=== PATIENT | female | born 1985 | race Two or more races ===

== ENCOUNTER 2024-02-06 11:04 | Emergency (ER) | payer OTHER ==
[~2024-02-06] VITALS: Ht 160 cm; Wt 106.6 kg
[2024-02-06 11:39] VITALS: BP 143/68; RESP 20; O2SAT 96
[2024-02-06 12:04] LABS: Urine Bacteria NONE SEEN /hpf (None Seen); Urine Blood Negative /uL (Negative); Urine Clarity Clear (Clear); Urine Mucus FEW (None Seen); Urine Protein, UAD Negative (Negative); Urine Specific Gravity 1.024 (1.001-1.035); Urine Urobilinogen Normal (Negative); Urine WBC 3 /hpf (0 - 5); Urine pH 5.5 (5.0-8.0)
[2024-02-06 12:08] LABS: Urine Color STRAW (Yellow)
[2024-02-06 13:21] LABS: Mean Corpuscular Hemoglobin 29.5 pg (28.0-32.0); Monocytes # (auto) 0.5 10 ^3/uL (0-1.3); White Blood Cell 8.1 10^3/uL (4.4-10.8)
[2024-02-06 13:22] LABS: Basophils # (auto) 0.1 10 ^3/uL (0-0.2); Basophils % (auto) 0.9 % (0.0-2.0); Eosinophils # (auto) 0.2 10 ^3/uL (0-0.8); Eosinophils % (auto) 2.7 % (0.0-7.0); Hematocrit 38.8 % (36.0-46.0); Hemoglobin 12.6 g/dL (12.2-16.2); Lymphocytes # (auto) 1.9 10 ^3/uL (0.4-5.4); Lymphocytes % (auto) 23.9 % (10.0-50.0); Mean Corpuscular Hgb Conc. 32.4 g/dL (32.0-36.0); Mean Corpuscular Volume 91.1 fL (80.0-100.0); Neutrophils # (auto) 5.4 10 ^3/uL (1.6-8.6); Neutrophils % (auto) 66.5 % (37.0-80.0); Red Blood Cells 4.26 10^6/uL (4.0-5.20); Red Cell Distribution Width 14.8 % (11.8-14.3)
[2024-02-06 13:31] VITALS: PULSE 68
[2024-02-06 13:34] LABS: INR 0.97 (0.9-1.15); Prothrombin Time 10.2 sec (9.3-11.8)
[2024-02-06 13:39] LABS: Albumin 4.4 g/dL (3.2-4.8); Alkaline Phosphatase 52 U/L (46-116); Anion Gap 7 (5-15); Aspartate Aminotransferase 54 U/L (13-40); Bilirubin, Total 0.4 mg/dL (0.2-1.0); Calcium 9.5 mg/dL (8.7-10.4); Carbon Dioxide 23 mmol/L (20-30); Chloride 105 mmol/L (98-107); Glucose 88 mg/dL (74-106); Sodium 135 mmol/L (136-145)
[2024-02-06 13:40] LABS: Total Protein 7.7 g/dL (5.7-8.2)
[2024-02-06 13:41] LABS: Alanine Aminotransferase 42 U/L (7-40); BUN/Creatinine Ratio 10.4 (10.0-20.0); Blood Urea Nitrogen 8 mg/dL (9-23); Lipase 29 U/L (12-53)
[2024-02-06] MEDS: IOHEXOL 350 MG/ML 100ML IJ ONE (13:58)
[2024-02-06] MEDS ORDERED: NAPR-591 PO (15:41)
== END 2024-02-06 16:49 | disposition left against medical advice (07) ==
LOC: ER 11:04
DX: R19.09 Other intra-abdominal and pelvic swelling, mass and lump (principal); R10.2 Pelvic and perineal pain; R10.10 Upper abdominal pain, unspecified; M25.561 Pain in right knee; Z98.890 Other specified postprocedural states; Z79.899 Other long term (current) drug therapy; V89.2XXA Person injured in unspecified motor-vehicle accident, traffic, initial encounter; Y93.I9 Activity, other involving external motion; Y92.89 Other specified places as the place of occurrence of the external cause; Y99.8 Other external cause status
CPT/HCPCS: 36415; 71260; 74177; 80053; 81001; 83690; 84484; 84702; 85025; 85610; 93005; 99285; Q9967

== ENCOUNTER 2025-03-17 04:14 | Emergency (ER) | payer OTHER ==
[~2025-03-17] VITALS: Ht 160 cm; Wt 106.3 kg
[~2025-03-17 04:14] MED LIST: NAPR-591 PO
--- NOTE | 2025-03-17 04:26 | ED.PDOC ---
Eye-HPI HPI Comments C/C of left ear pain. Pt states hearing has decreased without any cause. VSS. NKDA. Patient also complaining of diffuse rash across torso she states did a tele doc appointment however was not prescribed anything. She states it is fungal had in the past and used the cream which helped. Denies fever, chills, nausea, vomiting, diarrhea, chest pain, difficulty breathing, or shortness of breath. Time Seen by MD: 04:18 Primary Care Provider: Juan Reviewed Notes: Nurses Notes, Medications, Allergies Allergies: Coded Allergies: NO KNOWN ALLERGIES (Unverified , 02/06/24) Home Meds Active Scripts Clotrimazole W/ Betamethasone (Clotrimazole/Betamethason 1-0.05 %) 1 Cre Cre, 1 CRE EX BID for 7 Days, #15 GRAMS APPLY THIN LAYER TWICE DAILY TO AFFECTED AREA X7 DAYS Prov:RODY DONOVAN 03/17/25 Pqieramo-Rnazvetkc-Mb (Otic) (Cortisporin Otic Susp) [address], 4 DROP LEFT EAR TID for 7 Days, #3 ML Prov:RODY DONOVANP 03/17/25 Naproxen (Naproxen) 250 Mg Tab, 250 MG PO BID for 7 Days, #14 TAB Prov:ANNA GUTIERREZ MD 02/06/24 Information Source: Patient Past Medical History PAST MEDICAL HISTORY: Denies 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 Family History Family History: Family hx of DM, Family hx of Cancer Social History Smoker: Non-Smoker Alcohol: Denies ETOH Use Drugs: Denies Drug Use Lives In: Home Constitutional: denies: chills, diaphoresis, fatigue, fever, malaise, sweats, weakness, others EENTM: reports: ear pain; denies: blurred vision, double vision, ear bleeding, ear discharge, ear drainage, ear ringing, eye pain, eye redness, hearing loss, mouth pain, mouth swelling, nasal discharge, nose bleeding, nose congestion, nose pain, photophobia, tearing, throat pain, throat swelling, voice changes, others Respiratory: denies: cough, hemoptysis, orthopnea, SOB at rest, shortness of breath, SOB with excertion, stridor, wheezing, others Cardiovascular: denies: chest pain, dizzy spells, diaphoresis, Dyspnea on exertion, edema, irregular heart beat, left arm pain, lightheadedness, palpitations, PND, syncope, others Gastrointestinal: denies: abdomen distended, abdominal pain, blood streaked bowels, constipated, diarrhea, dysphagia, difficulty swallowing, hematemesis, melena, nausea, poor appetite, poor fluid intake, rectal bleeding, rectal pain, vomiting, others Genitourinary: denies: abnormal vagina bleeding, burning, dyspareunia, dysuria, flank pain, frequency, hematuria, incontinence, pain, , vagina discharge, urgency, others Neurological: denies: dizziness, fainting, headache, left sided numbness, left sided weakness, numbness, paresthesia, pre-existing deficit, right sided numbness, right sided weakness, seizure, speech problems, tingling, tremors, weakness, others Musculoskeletal: denies: back pain, gout, joint pain, joint swelling, muscle pain, muscle stiffness, neck pain, others Integumetry: denies: bruises, change in color, change in hair/nails, dryness, laceration, lesions, lumps, rash, wounds, others Allergic/Immunocompromised: denies: Difficulty Healing, Frequent Infections, Hives, Itching, others Hematologic/Lymphatic: denies: anemia, blood clots, easy bleeding, easy bruising, swollen glands, others Endocrine: denies: excessive hunger, excessive sweating, excessive thirst, excessive urination, flushing, intolerance to cold, intolerance to heat, unexplained weight gain, unexplained weight loss, others Psychiatric: denies: anxiety, bipolar disorder, depression, hopeless, panic disorder, schizophrenia, sleepless, suicidal, others Physical Exam General Appearance: No Apparent Distress, Normal HEENT: Pharynx Normal, TMs Normal, Other (LEFT EAR CANAL EDEMATOUS AND SOPHIA THEMIC WITHOUT DRAINAGE TYMPANIC MEMBRANE UNVISUALIZED) Neck: Full Range of Motion, Non-Tender, Normal, Normal Inspection Respiratory: Chest Non-Tender, Lungs Clear, No Accessory Muscle Use, No Respiratory Distress, Normal Breath Sounds Cardiovascular: No Edema, No JVD, No Murmur, No Gallop, Normal Peripheral Pulses, Regular Rate/Rhythm Breast Exam: Deferred Gastrointestinal: No Organomegaly, Non Tender, No Pulsatile Mass, Normal Bowel Sounds, Soft Genitalia: Deferred Pelvic: Deferred Rectal: Deferred Extremities: No calf tenderness, Normal capillary refill, Normal inspection, Normal range of motion, Non-tender, No pedal edema Musculoskeletal : Apperance: Normal Neurologic: Alert, senior storage engineer II-XII nml as Tested, No Motor Deficits, Normal Affect, Normal Mood, No Sensory Deficits Cerebellar Function: Normal Reflexes: Normal Skin: Dry, Normal Color, Rash (Dry erythemic scaly rash cross abdomen no noted excoriations lesions or openings no noted drainage. Blanchable), Warm Lymphatic: No Adenopathy Was a procedure done? Was a procedure done?: No EENT DIFF Eye: N/A Ear: Cerumen Impaction, Foreign Body, Barotrauma, Otitis Media, Perforation, Dental, Pharyngitis X-Ray, Labs, Meds, VS Vital Signs Date Time Temp Pulse Resp B/P (MAP) Pulse Ox O2 Delivery O2 Flow Rate FiO2 03/17/25 04:45 98.6 88 16 135/89 (104) 94 98.6 Current Medications Medications (Trade) Dose Ordered Sig/Belén Route Start Time Stop Time Status Last Admin Dexamethasone Sodium Phosphate (Decadron Injection) 10 mg ONCE ONCE IM 03/17/25 04:45 03/17/25 04:46 DC 03/17/25 04:59 Fluconazole (Diflucan Tablet) 200 mg ONCE ONCE PO 03/17/25 04:45 03/17/25 04:46 DC 03/17/25 04:59 X-Ray, Labs, Meds, VS Comment Patient Decadron 10 mg IM for the edema in on a for ear drops a penetrate in 1 dose of fluconazole for yeast infection. Patient states she is feeling better requesting discharge at this time script ear drops and antifungal cream patient's pharmacy on file. Advised to take medications as prescribed side effects discussed. Advised no water activities while with infection. Advised to follow up with her PCP in 1-2 days, ER return precautions given patient indicates understanding and agrees with discharge plan of care. Time of 1ST Reevaluation: 04:44 Reevaluation 1ST: Unchanged Time of 2ND Reevaluation: 05:08 Reevaluation 2ND: Improved Patient Education/Counseling: Diagnosis, Treatment, Prognosis, Need For Follow Up Family Education/Counseling: No Family Present Departure 1 Departure Time of Disposition: 05:08 Impression: Primary Impression: Otitis externa Qualified Codes: H60.312 - Diffuse otitis externa, left ear Additional Impression: Tinea corporis Disposition: HOME / SELF CARE / HOMELESS Condition: Stable e-Prescriptions Clotrimazole W/ Betamethasone (Clotrimazole/Betamethason 1-0.05 %) 1 Cre Cre 1 CRE EX BID for 7 Days, #15 GRAMS APPLY THIN LAYER TWICE DAILY TO AFFECTED AREA X7 DAYS Prov: RODY DONOVAN 03/17/25 Dfdmvrsv-Trosqajkl-Qi (Otic) (Cortisporin Otic Susp) [address] 4 DROP LEFT EAR TID for 7 Days, #3 ML Prov: RODY DONOVAN 03/17/25 Discharged With: Self Critical Care Note Critical Care Time?: No Stability Stability form required: RODY Menjivar Mar 17, 2025 04:26
[2025-03-17] MEDS ORDERED: CLOTCRE3 EX (04:46)
[2025-03-17] MEDS ORDERED: COROSUS LEFT EAR (04:46)
[2025-03-17] MEDS: FLUCONAZOLE 100 MG TAB PO ONE (04:59)
[2025-03-17] MEDS: DexAMETHasone SOD PHOS 10MG/1ML VIAL INJ IM ONE (04:59)
[2025-03-17 05:08] VITALS: BP 135/89; PULSE 88; RESP 16; TEMP 98.6; O2SAT 94
== END 2025-03-17 05:10 | disposition home or self-care (01) ==
LOC: ER 04:14
DX: H60.8X2 Other otitis externa, left ear (principal); B35.4 Tinea corporis; Z98.890 Other specified postprocedural states
CPT/HCPCS: 96372; 99283; J1100

== ENCOUNTER 2025-03-24 18:03 | Emergency (ER) | payer OTHER ==
[~2025-03-24] VITALS: Ht 160 cm; Wt 103.8 kg
[~2025-03-24 18:03] MED LIST changes: +CLOTCRE3 EX; +COROSUS LEFT EAR
[2025-03-24 18:44] LABS: Urine Bacteria None Seen /hpf (None Seen)
--- NOTE | 2025-03-24 18:51 | ED.PDOC ---
GI ASSESSMENT HPI Comments 40-year-old female who came to ER for abdominal pain. Patient has history of gallstones, intermittent episodes of aching, sharp, right upper quadrant abdominal pain, nonradiating, associated bouts of nausea and vomiting. Patient states she feels like her gallstones are flaring up again. Patient also complaining of hearing loss of the left ear. Chief Complaint: Abdominal Pain Time Seen by MD: 18:51 Primary Care Provider: DEVANTE Reviewed Notes: Nurses Notes Allergies: Coded Allergies: NO KNOWN ALLERGIES (Unverified , 02/06/24) Home Meds Active Scripts Clotrimazole W/ Betamethasone (Clotrimazole/Betamethason 1-0.05 %) 1 Cre Cre, 1 CRE EX BID for 7 Days, #15 GRAMS APPLY THIN LAYER TWICE DAILY TO AFFECTED AREA X7 DAYS Prov:RODY DONOVAN 03/17/25 Cemlltye-Ymbuogacn-Tl (Otic) (Cortisporin Otic Susp) [address], 4 DROP LEFT EAR TID for 7 Days, #3 ML Prov:RODY DONOVAN 03/17/25 Naproxen (Naproxen) 250 Mg Tab, 250 MG PO BID for 7 Days, #14 TAB Prov:ANNA GUTIERREZ MD 02/06/24 Information Source: Patient Mode of Arrival: Ambulatory Timing: Days Duration: Intermittent Prehospital treatment: None Quality: Aching, Sharp Vomitus: Watery Stool: Normal Severity: Moderate Recent: None Recent Hx of: Abdominal Surgery Pain Location: RUQ Modifying Factors: Nothing Associated sign and symptoms: Nausea, Vomiting, Abdominal Pain Past Medical History PAST MEDICAL HISTORY: Gallstones 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 Family History Family History: Family hx of DM, Family hx of Cancer Social History Smoker: Non-Smoker Alcohol: Denies ETOH Use Drugs: Denies Drug Use Lives In: Home Constitutional: denies: chills, diaphoresis, fatigue, fever, malaise, sweats, weakness, others EENTM: reports: hearing loss (Left ear); denies: blurred vision, double vision, ear bleeding, ear discharge, ear drainage, ear pain, ear ringing, eye pain, eye redness, mouth pain, mouth swelling, nasal discharge, nose bleeding, nose congestion, nose pain, photophobia, tearing, throat pain, throat swelling, voice changes, others Respiratory: denies: cough, hemoptysis, orthopnea, SOB at rest, shortness of breath, SOB with excertion, stridor, wheezing, others Cardiovascular: denies: chest pain, dizzy spells, diaphoresis, Dyspnea on exertion, edema, irregular heart beat, left arm pain, lightheadedness, palpitations, PND, syncope, others Gastrointestinal: reports: abdominal pain, nausea, vomiting; denies: abdomen distended, blood streaked bowels, constipated, diarrhea, dysphagia, difficulty swallowing, hematemesis, melena, poor appetite, poor fluid intake, rectal bleeding, rectal pain, others Genitourinary: denies: abnormal vagina bleeding, burning, dyspareunia, dysuria, flank pain, frequency, hematuria, incontinence, pain, , vagina discharge, urgency, others Neurological: denies: dizziness, fainting, headache, left sided numbness, left sided weakness, numbness, paresthesia, pre-existing deficit, right sided numbness, right sided weakness, seizure, speech problems, tingling, tremors, weakness, others Musculoskeletal: denies: back pain, gout, joint pain, joint swelling, muscle pain, muscle stiffness, neck pain, others Integumetry: denies: bruises, change in color, change in hair/nails, dryness, laceration, lesions, lumps, rash, wounds, others Allergic/Immunocompromised: denies: Difficulty Healing, Frequent Infections, Hives, Itching, others Hematologic/Lymphatic: denies: anemia, blood clots, easy bleeding, easy bruising, swollen glands, others Endocrine: denies: excessive hunger, excessive sweating, excessive thirst, excessive urination, flushing, intolerance to cold, intolerance to heat, unexplained weight gain, unexplained weight loss, others Psychiatric: denies: anxiety, bipolar disorder, depression, hopeless, panic disorder, schizophrenia, sleepless, suicidal, others Physical Exam General Appearance: No Apparent Distress, Normal HEENT: Normal ENT Inspection, Pharynx Normal, TMs Normal Neck: Full Range of Motion, Non-Tender, Normal, Normal Inspection Respiratory: Chest Non-Tender, Lungs Clear, No Accessory Muscle Use, No Respiratory Distress, Normal Breath Sounds Cardiovascular: No Edema, No JVD, No Murmur, No Gallop, Normal Peripheral Pulses, Regular Rate/Rhythm Breast Exam: Deferred Gastrointestinal: No Organomegaly, No Pulsatile Mass, Normal Bowel Sounds, RUQ, Soft, Tenderness Genitalia: Deferred Pelvic: Deferred Rectal: Deferred Extremities: No calf tenderness, Normal capillary refill, Normal inspection, Normal range of motion, Non-tender, No pedal edema Musculoskeletal : Apperance: Normal Neurologic: Alert, motor bike mechanic II-XII nml as Tested, No Motor Deficits, Normal Affect, Normal Mood, No Sensory Deficits Cerebellar Function: Normal Reflexes: Normal Skin: Dry, Normal Color, Warm Lymphatic: No Adenopathy Was a procedure done? Was a procedure done?: No GI differential Dx Differential Diagnosis: Cholecystitis, Diverticular disease, Gastritis/PUD, Gastroenteritis, Hernia, Hepatitis, Pancreatitis, UTI, Urolithiasis X-Ray, Labs, Meds, VS Vital Signs Date Time Temp Pulse Resp B/P (MAP) Pulse Ox O2 Delivery O2 Flow Rate FiO2 03/24/25 18:38 99.2 82 16 141/75 (97) 97 99.2 Lab Test 03/24/25 18:53 03/24/25 18:32 Range/Units White Blood Count 11.2 H 4.4-10.8 10^3/uL Red Blood Count 4.60 4.0-5.20 10^6/uL Hemoglobin 13.3 12.2-16.2 g/dL Hematocrit 41.2 36.0-46.0 % Mean Corpuscular Volume 89.6 80.0-100.0 fL Mean Corpuscular Hemoglobin 28.9 28.0-32.0 pg Mean Corpuscular Hemoglobin Concent 32.2 32.0-36.0 g/dL Red Cell Distribution Width 14.2 11.8-14.3 % Platelet Count 416 140-450 10^3/uL Mean Platelet Volume 7.6 6.9-10.8 fL Neutrophils (%) (Auto) 69.0 37.0-80.0 % Lymphocytes (%) (Auto) 22.5 10.0-50.0 % Monocytes (%) (Auto) 5.8 0.0-12.0 % Eosinophils (%) (Auto) 1.7 0.0-7.0 % Basophils (%) (Auto) 1.0 0.0-2.0 % Neutrophils # (Auto) 7.7 1.6-8.6 10 ^3/uL Lymphocytes # (Auto) 2.5 0.4-5.4 10 ^3/uL Monocytes # (Auto) 0.7 0-1.3 10 ^3/uL Eosinophils # (Auto) 0.2 0-0.8 10 ^3/uL Basophils # (Auto) 0.1 0-0.2 10 ^3/uL Nucleated Red Blood Cells 0.0 % Sodium Level 138 136-145 mmol/L Potassium Level 4.4 3.5-5.1 mmol/L Chloride Level 107 98-107 mmol/L Carbon Dioxide Level 23 20-31 mmol/L Anion Gap 8 5-15 Blood Urea Nitrogen 11 9-23 mg/dL Creatinine 0.84 0.550-1.02 mg/dL Glomerular Filtration Rate Calc 89 >90 mL/min BUN/Creatinine Ratio 13.1 10.0-20.0 Serum Glucose 113 H 74-106 mg/dL Calcium Level 9.9 8.7-10.4 mg/dL Total Bilirubin 0.2 0.2-1.0 mg/dL Aspartate Amino Transferase (AST) 20 13-40 U/L Alanine Aminotransferase (ALT) 33 7-40 U/L Alkaline Phosphatase 63 46-116 U/L Total Protein 7.4 5.7-8.2 g/dL Albumin 4.6 3.2-4.8 g/dL Lipase 44 12-53 U/L Urine Color Light-yellow Yellow Urine Clarity Clear Clear Urine pH 5.0 5.0-9.0 Urine Specific [place] 1.023 1.001-1.035 Urine Protein Negative Negative Urine Ketones Negative Negative Urine Blood Negative Negative /uL Urine Nitrite Negative Negative Urine Bilirubin Negative Negative Urine Urobilinogen Normal Negative mg/dL Urine Leukocyte Esterase Negative Negative /uL Urine RBC <1 0 - 4 /hpf Urine Microscopic WBC 1 0-5 /HPF Urine Squamous Epithelial Cells Few <5 /hpf Urine Bacteria None seen None Seen /hpf Urine Hyaline Casts Few 0 - 2 /lpf Urine Mucus Few None Seen Urine Glucose Normal Normal mg/dL PROCEDURE(s): GBUS - GALLBLADDER REASON: RUQ pain ORDER NUMBER(s): [id number], ACCESSION NUMBER(s): [id number] INDICATION: RUQ pain TECHNIQUE: Multiple real-time sonographic images of the abdomen were obtained. COMPARISON: None FINDINGS: Echogenic hepatic parenchyma suggesting steatosis The liver measures 16.97 cm. No intrahepatic biliary ductal dilatation is noted. The gallbladder wall measures 0.52 cm and is u thickened. Multiple gallstones. The common duct measures 0.33 cm and is unremarkable. No pericholecystic fluid is noted. Negative sonographic groves's sign The right kidney measures 10.3 cm. No hydronephrosis. The pancreas head appears normal tail is obscured by bowel gas The visualized portions of the IVC and aorta are grossly unremarkable. IMPRESSION: 1. Liver is 16.97 cm in length with steatosis of the hepatic parenchyma. 2. Cholelithiasis with thickened gallbladder wall. Sonographic groves's sign is negative. There is pericholecystic fluid 3. Right kidney measures 10.93 cm. Time of 1ST Reevaluation: 18:48 Reevaluation 1ST: Unchanged Patient Education/Counseling: Diagnosis, Treatment Family Education/Counseling: No Family Present Departure 1 Departure Time of Disposition: 20:08 Impression: Primary Impression: Acute abdominal pain Additional Impression: Cholecystitis Disposition: 09 ADMITTED INPATIENT Condition: Guarded Discharged With: Self Comments Acute Cholecystitis Chief Complaint: Abdominal pain with nausea and vomiting History of Present Illness: 40-year-old female with known history of gallstones presents with abdominal pain, nausea, and vomiting for the past two days. Patient reports associated symptoms including nausea with episodes of vomiting. She has a documented hi story of gallstones. Review of Systems: Constitutional: Positive for nausea and vomiting Gastrointestinal: Positive for abdominal pain All other systems reviewed and negative Past Medical History: Cholelithiasis Fatty liver disease Lab Results: WBC: 11.2 (Elevated) Liver function tests: Within normal limits Imaging and Other Relevant Results: Ultrasound findings: - Gallstones present - Thickened gallbladder wall - Pericholecystic fluid - Fatty liver changes - Negative Groves's sign Medical Decision Making: Summary Statement: 40-year-old female with known gallstones presenting with acute onset of abdominal pain, nausea, and vomiting, found to have ultrasound findings consistent with acute cholecystitis and elevated WBC. Problem List: 1. Acute cholecystitis 2. Cholelithiasis 3. Fatty liver disease Differential Diagnosis: 1. Acute cholecystitis 2. Biliary colic 3. Choledocholithiasis 4. Acute pancreatitis 5. Gastritis ED Course: Patient evaluated with labs and imaging. Given findings of elevated WBC, thickened gallbladder wall, and pericholecystic fluid, diagnosis of acute cholecystitis was made. Started on IV Zosyn. Surgery consulted for admission. Assessment and Plan: 1. Acute Cholecystitis: - Admit to hospital for surgical evaluation - Continue IV Zosyn - NPO status - IV fluids - Pain management as needed 2. Fatty Liver Disease: - Incidental finding - Outpatient follow-up recommended after acute issue resolves Billing Information: ICD-10: K81.0 - Acute cholecystitis ICD-10: K80.20 - Calculus of gallbladder without cholecystitis ICD-10: K76.0 - Fatty liver disease Critical Care Note Critical Care Time?: No Stability Stability form required: No Heart Score Heart Score: Heart Score Response (Comments) Value History N/A 0 EKG N/A 0 Age N/A 0 Risk Factors N/A 0 Troponin N/A 0 Total 0 I personally scribed for FRANDY WIGGINS MD ([email or web address]) on 03/24/25 at 18:51. Electronically submitted by Angus Vincent ([email or web address]). I personally scribed for FRANDY WIGGINS MD ([email or web address]) on 03/24/25 at 20:00. Electronically submitted by Angus Vincent ([email or web address]). FRANDY WIGGINS MD Mar 24, 2025 18:51
[2025-03-24 18:53] LABS: Urine Blood Negative /uL (Negative); Urine Clarity Clear (Clear); Urine Color Light-Yellow (Yellow); Urine Hyaline Cast FEW /lpf (0 - 2); Urine Mucus FEW (None Seen); Urine Protein, UAD Negative (Negative); Urine Specific Gravity 1.023 (1.001-1.035); Urine Squamous Epithelial Cell FEW /hpf (<5); Urine Urobilinogen Normal (Negative); Urine WBC 1 /HPF (0-5)
[2025-03-24 19:22] LABS: Basophils # (auto) 0.1 10 ^3/uL (0-0.2); Eosinophils # (auto) 0.2 10 ^3/uL (0-0.8); Eosinophils % (auto) 1.7 % (0.0-7.0); Hematocrit 41.2 % (36.0-46.0); Hemoglobin 13.3 g/dL (12.2-16.2); Lymphocytes # (auto) 2.5 10 ^3/uL (0.4-5.4); Lymphocytes % (auto) 22.5 % (10.0-50.0); Mean Corpuscular Hemoglobin 28.9 pg (28.0-32.0); Mean Corpuscular Hgb Conc. 32.2 g/dL (32.0-36.0); Mean Corpuscular Volume 89.6 fL (80.0-100.0); Monocytes # (auto) 0.7 10 ^3/uL (0-1.3); Monocytes % (auto) 5.8 % (0.0-12.0); Neutrophils # (auto) 7.7 10 ^3/uL (1.6-8.6); Platelet Count (auto) 416 10^3/uL (140-450); Red Cell Distribution Width 14.2 % (11.8-14.3); White Blood Cell 11.2 10^3/uL (4.4-10.8)
[2025-03-24 19:40] LABS: Alanine Aminotransferase 33 U/L (7-40); Albumin 4.6 g/dL (3.2-4.8); Alkaline Phosphatase 63 U/L (46-116); Anion Gap 8 (5-15); Aspartate Aminotransferase 20 U/L (13-40); BUN/Creatinine Ratio 13.1 (10.0-20.0); Blood Urea Nitrogen 11 mg/dL (9-23); Calcium 9.9 mg/dL (8.7-10.4); Carbon Dioxide 23 mmol/L (20-31); Chloride 107 mmol/L (98-107); Lipase 44 U/L (12-53); Potassium 4.4 mmol/L (3.5-5.1); Sodium 138 mmol/L (136-145); Total Protein 7.4 g/dL (5.7-8.2)
--- NOTE | 2025-03-24 19:42 | DVH ---
INDICATION: RUQ pain TECHNIQUE: Multiple real-time sonographic images of the abdomen were obtained. COMPARISON: None FINDINGS: Echogenic hepatic parenchyma suggesting steatosis The liver measures 16.97 cm. No intrahep atic biliary ductal dilatation is noted. The gallbladder wall measures 0.52 cm and is u thickened. Multiple gallstones. The common duct jo ann sures 0.33 cm and is unremarkable. No pericholecystic fluid is noted. Negative sonographic cohen's sign The right kidney measures 10.3 cm. No hydronephrosis. The pancreas head appears normal tail is obscured by bowel gas The visualized portions of the IVC and aorta are grossly unremarkable. IMPRESSION: 1. Liver is 16.97 cm in length with steatosis of the hepatic parenchyma. 2. Cholelithiasis with thickened gallbladder wall. Sonographic cohen's sign is negative. There is pe richolecystic fluid 3. Right kidney measures 10.93 cm.
[2025-03-24 19:49] LABS: Bilirubin, Total 0.2 mg/dL (0.2-1.0); Glucose 113 mg/dL (74-106)
[2025-03-24] MEDS: PIPERACILLIN-TAZOB 3.375GM 100 ML IV ONE (22:55)
[2025-03-24] MEDS: ONDANSETRON HCL 4 MG/2 ML VIAL IV ONE (22:56)
[2025-03-24] MEDS: KETOROLAC TROMETH 30 MG/ML 1ML VIAL IV ONE (22:56)
[2025-03-24] MEDS: HYDROmorphone HCL 2 MG/ML VL/or syr IV ONE (22:57)
[2025-03-24 23:03] VITALS: PULSE 81; RESP 18; O2SAT 99
--- NOTE | 2025-03-24 23:06 | DVHINCON2 ---
Date of service: Mar 24, [address] Tomas Reason for Consultation Transfer patient to [facility] designated facility History of Present Illness This is a 40-year-old female with a past medical history who presented with complaint of right upper quadrant abdominal pain associated with nausea and reported nonbilious, non bloody emesis prompting her to seek medical attention at [facility] Emergency room. She attributed to her pain to an exacerbation of her chronic cholelithiasis. Ultrasound confirmed suspicion for acute cholecystitis/symptomatic cholelithiasis and patient was recommended for admission for further evaluation and management. Given her insurance, she was recommended for transfer to [facility] designated facility. I was consulted to facilitate transfer to [facility] as a diuretic transfer. Patient reportedly improved with symptomatic treatment. Past Medical History Cholelithiasis Recent otitis media status post initiation of otic drops Family History Reviewed in EMR Social History Reviewed in EMR Allergies: Coded Allergies: NO KNOWN ALLERGIES (Unverified , 02/06/24) Home Meds Active Scripts Clotrimazole W/ Betamethasone (Clotrimazole/Betamethason 1-0.05 %) 1 Cre Cre, 1 CRE EX BID for 7 Days, #15 GRAMS APPLY THIN LAYER TWICE DAILY TO AFFECTED AREA X7 DAYS Prov:RODY DONOVAN 03/17/25 Czfzglnw-[id number]-Tp (Otic) (Cortisporin Otic Susp) [address], 4 DROP LEFT EAR TID for 7 Days, #3 ML Prov:RODY DONOVAN 03/17/25 Naproxen (Naproxen) 250 Mg Tab, 250 MG PO BID for 7 Days, #14 TAB Prov:ANNA GUTIERREZ MD 02/06/24 Vital Signs Vital Signs Date Time Temp Pulse Resp B/P (MAP) Pulse Ox O2 Delivery O2 Flow Rate FiO2 03/24/25 23:03 98.2 81 18 142/98 (113) 99 98.2 Physical Exam ER provider exam reviewed Labs/Diagnostic Data Labs Test 03/24/25 18:53 03/24/25 18:32 Range/Units White Blood Count 11.2 H 4.4-10.8 10^3/uL Red Blood Count 4.60 4.0-5.20 10^6/uL Hemoglobin 13.3 12.2-16.2 g/dL Hematocrit 41.2 36.0-46.0 % Mean Corpuscular Volume 89.6 80.0-100.0 fL Mean Corpuscular Hemoglobin 28.9 28.0-32.0 pg Mean Corpuscular Hemoglobin Concent 32.2 32.0-36.0 g/dL Red Cell Distribution Width 14.2 11.8-14.3 % Platelet Count 416 140-450 10^3/uL Mean Platelet Volume 7.6 6.9-10.8 fL Neutrophils (%) (Auto) 69.0 37.0-80.0 % Lymphocytes (%) (Auto) 22.5 10.0-50.0 % Monocytes (%) (Auto) 5.8 0.0-12.0 % Eosinophils (%) (Auto) 1.7 0.0-7.0 % Basophils (%) (Auto) 1.0 0.0-2.0 % Neutrophils # (Auto) 7.7 1.6-8.6 10 ^3/uL Lymphocytes # (Auto) 2.5 0.4-5.4 10 ^3/uL Monocytes # (Auto) 0.7 0-1.3 10 ^3/uL Eosinophils # (Auto) 0.2 0-0.8 10 ^3/uL Basophils # (Auto) 0.1 0-0.2 10 ^3/uL Nucleated Red Blood Cells 0.0 % Sodium Level 138 136-145 mmol/L Potassium Level 4.4 3.5-5.1 mmol/L Chloride Level 107 98-107 mmol/L Carbon Dioxide Level 23 20-31 mmol/L Anion Gap 8 5-15 Blood Urea Nitrogen 11 9-23 mg/dL Creatinine 0.84 0.550-1.02 mg/dL Glomerular Filtration Rate Calc 89 >90 mL/min BUN/Creatinine Ratio 13.1 10.0-20.0 Serum Glucose 113 H 74-106 mg/dL Calcium Level 9.9 8.7-10.4 mg/dL Total Bilirubin 0.2 0.2-1.0 mg/dL Aspartate Amino Transferase (AST) 20 13-40 U/L Alanine Aminotransferase (ALT) 33 7-40 U/L Alkaline Phosphatase 63 46-116 U/L Total Protein 7.4 5.7-8.2 g/dL Albumin 4.6 3.2-4.8 g/dL Lipase 44 12-53 U/L Urine Color Light-yellow Yellow Urine Clarity Clear Clear Urine pH 5.0 5.0-9.0 Urine Specific [place] 1.023 1.001-1.035 Urine Protein Negative Negative Urine Ketones Negative Negative Urine Blood Negative Negative /uL Urine Nitrite Negative Negative Urine Bilirubin Negative Negative Urine Urobilinogen Normal Negative mg/dL Urine Leukocyte Esterase Negative Negative /uL Urine RBC <1 0 - 4 /hpf Urine Microscopic WBC 1 0-5 /HPF Urine Squamous Epithelial Cells Few <5 /hpf Urine Bacteria None seen None Seen /hpf Urine Hyaline Casts Few 0 - 2 /lpf Urine Mucus Few None Seen Urine Glucose Normal Normal mg/dL Imaging in EMR which included only radiologic ultrasound was reviewed Plan/Recommendation This is a 40-year-old female with past medical history of cholelithiasis who was requested for admission for further evaluation and management with suspected acute cholecystitis/symptomatic cholelithiasis. Patient determined to be hemodynamically and clinically stable by ER provider with plan for transfer to [facility] designated facility. I was consulted to facilitate transfer. Patient reportedly accepted risks of transfer which included, but not limited to, motor vehicle accident, discomfort, instability, deterioration and/or . I will be the accepting physician at [facility] via direct admission. Please do not hesitate to contact me if there is any changes status This medical document was created using an electronic medical record system with [employer] dictation system. Although this document has been carefully reviewed, there may still be some phonetic and typographical errors. These areas are purely typographical due to imperfections of the software programs, and do not reflect any compromise in the patient's medical care Plan discussed with: Other NAREN BENAVIDES MD Mar 24, 2025 23:06
[2025-03-24 23:52] VITALS: BP 128/78; PULSE 67; RESP 17; TEMP 97.8; O2SAT 95
== END 2025-03-25 00:09 | disposition short-term general hospital (02) ==
LOC: ER 18:03
DX: R10.11 Right upper quadrant pain (principal); K81.9 Cholecystitis, unspecified; Z98.890 Other specified postprocedural states
CPT/HCPCS: 36415; 76705; 80053; 81001; 83690; 85025; 96365; 96375; 99285; J1171; J1885; J2405; J2543